=== PATIENT | female | born 1950 | race Caucasian/White ===

== ENCOUNTER → 2020-05-07 | Outpatient (CLI) | payer OTHER ==
[~2020-05-07] MED LIST: ASPIR 8181 MG PO; B-121000 MCG PO; BIOTIN2500 MCG PO; CELEXA10 MG PO; CITALOPRAM HBR20 MG PO; ELIQUIS5 MG PO; FISH OIL 1,2001 EACH PO; HARD NAILS2500 MCG PO; HYDROCHLOROTH12.5 MG PO; K-DUR TAB 10 M10 MEQ PO; K-DUR TAB 20 M20 MEQ PO; LOVASTATIN10 MG PO; LOVASTATIN20 MG PO; MACROBID 100 M100 MG PO; MAGNESIUM500 MG PO; MECLIZINE HCL12.5 MG PO; MELOXICAM15 MG PO; PANTOPRAZOLE SO40 MG PO; PERCOCET 5/325 T1 EA PO; POTASSIUM CHLO10 ME1 PO; PROTONIX40 MG PO; PYRIDIUM100 MG PO; VIT B12 PO
[2020-05-07 09:00] LABS: HEMOGLOBIN 13.5 gm/dl (12.3-15.3); RED BLOOD COUNT 4.24 M/UL (4.00-5.10)
[2020-05-08 08:14] LABS: THYROXINE (T4) 8.9 ug/dL (4.5-12.0)
== END ==
LOC: MRI 04-26 13:00
PROVIDERS: Nurse Practitioner Family
DX: H91.8X2 Other specified hearing loss, left ear (principal); I10 Essential (primary) hypertension; I48.91 Unspecified atrial fibrillation; F41.9 Anxiety disorder, unspecified; E78.5 Hyperlipidemia, unspecified; M10.9 Gout, unspecified; G31.9 Degenerative disease of nervous system, unspecified
CPT/HCPCS: 36415; 70553; 80053; 80061; 84436; 84443; 84480; 84550; 85025; A9577

== ENCOUNTER → 2020-10-02 | Outpatient (CLI) | payer OTHER ==
[2020-10-02 08:15] LABS: HEMOGLOBIN 12.1 gm/dl (12.3-15.3); RED BLOOD COUNT 3.9 M/UL (4.00-5.10); WHITE BLOOD COUNT 7.2 K/UL (4.5-11.0)
[2020-10-03 08:13] LABS: VITAMIN D, 25-HYDROXY 35.8 ng/mL (30.0-100.0)
== END ==
LOC: LAB 07:41
PROVIDERS: Nurse Practitioner Family
DX: E78.5 Hyperlipidemia, unspecified (principal); E55.9 Vitamin D deficiency, unspecified; R53.82 Chronic fatigue, unspecified; M1A.9XX0 Chronic gout, unspecified, without tophus (tophi)
CPT/HCPCS: 36415; 80053; 80061; 81001; 84436; 84443; 84480; 84550; 85025

== ENCOUNTER → 2020-12-26 | Outpatient (CLI) | payer OTHER | LOC: MAMO 07:13 | DX: Z12.31 Encounter for screening mammogram for malignant neoplasm of breast (principal) | CPT/HCPCS: 77063; 77067 ==

== ENCOUNTER → 2021-03-11 | Outpatient (CLI) | payer OTHER ==
[2021-03-11 08:05] LABS: HEMOGLOBIN 12.2 gm/dl (12.3-15.3); RED BLOOD COUNT 3.95 M/UL (4.00-5.10); WHITE BLOOD COUNT 6.6 K/UL (4.5-11.0)
[2021-03-12 07:10] LABS: A/G RATIO 1.8 (1.2-2.2); ALKALINE PHOSPHATASE, S 107 IU/L (44-121); ALT (SGPT) 23 IU/L (0-32); AST (SGOT) 26 IU/L (0-40); BILIRUBIN, TOTAL <0.2 mg/dL (0.0-1.2); BUN 11 mg/dL (8-27); BUN/CREATININE RATIO 11 (12-28); CALCIUM, SERUM 9.5 mg/dL (8.7-10.3); CARBON DIOXIDE, TOTAL 22 mmol/L (20-29); CHLORIDE, SERUM 102 mmol/L (96-106); CHOLESTEROL, TOTAL 231 mg/dL (100-199); CREATININE, SERUM 0.98 mg/dL (0.57-1.00); EGFR IF AFRICN AM 68 (>59); EGFR IF NONAFRICN AM 59 (>59); GLOBULIN, TOTAL 2.3 g/dL (1.5-4.5); GLUCOSE, SERUM 92 mg/dL (65-99); HDL CHOLESTEROL 51 mg/dL (>39); LDL CHOLESTEROL CALC 158 mg/dL (0-99); LDL/HDL RATIO 3.1 ratio (0.0-3.2); POTASSIUM, SERUM 4.1 mmol/L (3.5-5.2); PROTEIN, TOTAL, SERUM 6.4 g/dL (6.0-8.5); SODIUM, SERUM 141 mmol/L (134-144); T. CHOL/HDL RATIO 4.5 ratio (0.0-4.4); TRIGLYCERIDES 123 mg/dL (0-149)
[2021-03-12 08:13] LABS: VITAMIN D, 25-HYDROXY 39.6 ng/mL (30.0-100.0)
== END ==
LOC: LAB 07:19
PROVIDERS: Nurse Practitioner Family
DX: M15.9 Polyosteoarthritis, unspecified (principal); E53.8 Deficiency of other specified B group vitamins; E55.9 Vitamin D deficiency, unspecified; E78.2 Mixed hyperlipidemia; F34.1 Dysthymic disorder; I10 Essential (primary) hypertension; R14.3 Flatulence
CPT/HCPCS: 36415; 74018; 80053; 80061; 82607; 84443; 85025

== ENCOUNTER → 2021-06-17 | Outpatient (CLI) | payer OTHER | LOC: KOH-I 06-14 11:00 | DX: M79.661 Pain in right lower leg (principal); M79.662 Pain in left lower leg; R31.9 Hematuria, unspecified; N20.0 Calculus of kidney | CPT/HCPCS: 74176; 93970 ==

== ENCOUNTER → 2021-08-29 | Outpatient (CLI) | payer OTHER | LOC: EXRD 13:00 | DX: M81.0 Age-related osteoporosis without current pathological fracture (principal) | CPT/HCPCS: 77080 ==